=== PATIENT | male | born 2000 | race Two or more races ===

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

== ENCOUNTER 2022-07-26 17:13 | Inpatient (IN) | payer OTHER ==
[~2022-07-26] VITALS: Ht 172.7 cm; Wt 150.4 kg
[2022-07-26 17:53] LABS: Eosinophils # (auto) 0.1 10 ^3/uL (0-0.8); Eosinophils % (auto) 1.1 % (0.0-7.0); Lymphocytes # (auto) 2.8 10 ^3/uL (0.4-5.4); Nucleated Red Blood Cells % 0.1 %
[2022-07-26 17:54] LABS: Basophils # (auto) 0.1 10 ^3/uL (0-0.2); Basophils % (auto) 0.6 % (0.0-2.0); Hematocrit 40.3 % (41.0-53.0); Hemoglobin 13.4 g/dL (13.5-17.5); Lymphocytes % (auto) 25.2 % (10.0-50.0); Mean Corpuscular Hemoglobin 27.2 pg (28.0-32.0); Mean Corpuscular Hgb Conc. 33.3 g/dL (32.0-36.0); Mean Corpuscular Volume 81.7 fL (80.0-100.0); Monocytes % (auto) 8.5 % (0.0-12.0); Neutrophils # (auto) 7.3 10 ^3/uL (1.6-8.6); Neutrophils % (auto) 64.6 % (37.0-80.0); Red Blood Cells 4.92 10^6/uL (4.5-5.90); Red Cell Distribution Width 14.1 % (11.8-14.3); White Blood Cell 11.3 10^3/uL (4.4-10.8)
[2022-07-26 18:13] LABS: Albumin 3.5 g/dL (3.4-5.0); BUN/Creatinine Ratio 14.7; Potassium 3.8 mmol/L (3.5-5.1)
[2022-07-26 18:16] LABS: Bilirubin, Total 0.2 mg/dL (0.2-1.0); Total Protein 8.3 g/dL (6.4-8.2)
[2022-07-26] MEDS ORDERED: DICYCLOMINE HCL (10MG/ML) 2 ML AMPULE IM ONE (20:15)
[2022-07-26] MEDS ORDERED: PIPERACILLIN-TAZOB 3.375GM 100 ML IV ONE (22:00)
[2022-07-26] MEDS ORDERED: DOCUSATE SOD 100 MG CAP PO PRN (22:15)
[2022-07-26] MEDS ORDERED: ONDANSETRON HCL 4 MG/2 ML VIAL IV PRN (22:15)
[2022-07-26] MEDS ORDERED: ACETAMINOPHEN 325 MG TAB PO PRN (22:15)
[2022-07-26] MEDS ORDERED: HYDROcodone-ACET 5/325MG TAB PO PRN (22:15)
[2022-07-26 23:30] LABS: INR 0.94 (0.9-1.15); Partial Thromboplastin Time 28.7 sec (24.6-33.4)
[2022-07-27] MEDS ORDERED: MORPHINE SULFATE INJ 2 MG/ml SYRG IV PRN
[2022-07-27] MEDS ORDERED: NITROGLYCERIN 0.4 MG SL TAB SL PRN
[2022-07-27] MEDS: D5W/SOD CHL 0.45% 1,000 ML IV SCH ×2 (00:29→14:00)
[2022-07-27 07:28] LABS: Basophils # (auto) 0.1 10 ^3/uL (0-0.2); Basophils % (auto) 1.4 % (0.0-2.0); Eosinophils # (auto) 0.1 10 ^3/uL (0-0.8); Eosinophils % (auto) 1.7 % (0.0-7.0); Hematocrit 37.9 % (41.0-53.0); Lymphocytes # (auto) 2.3 10 ^3/uL (0.4-5.4); Lymphocytes % (auto) 33.6 % (10.0-50.0); Mean Corpuscular Hemoglobin 27.3 pg (28.0-32.0); Mean Corpuscular Hgb Conc. 34.5 g/dL (32.0-36.0); Mean Corpuscular Volume 79.3 fL (80.0-100.0); Monocytes # (auto) 0.6 10 ^3/uL (0-1.3); Monocytes % (auto) 8.9 % (0.0-12.0); Neutrophils # (auto) 3.7 10 ^3/uL (1.6-8.6); Neutrophils % (auto) 54.4 % (37.0-80.0); Nucleated Red Blood Cells % 0.2 %; Red Blood Cells 4.77 10^6/uL (4.5-5.90); Red Cell Distribution Width 14.6 % (11.8-14.3); White Blood Cell 6.7 10^3/uL (4.4-10.8)
[2022-07-27 07:48] LABS: Calcium 8.6 mg/dL (8.5-10.1); Potassium 3.9 mmol/L (3.5-5.1)
[2022-07-27 07:54] LABS: BUN/Creatinine Ratio 18.3; Bilirubin, Total 0.4 mg/dL (0.2-1.0); Total Protein 7.2 g/dL (6.4-8.2)
[2022-07-27] MEDS ORDERED: ceFAZolin 1GM/50ML 100 ML IV ONE (08:36)
[2022-07-27 08:49] LABS: Urine Bacteria NONE SEEN /hpf (None Seen); Urine Blood Negative /uL (Negative); Urine Mucus MODERATE (None Seen); Urine WBC 10 /hpf (0 - 3)
[2022-07-27] MEDS ORDERED: LIDOCAINE W/ EPINEPHRINE 1% 20ML VIAL ONE (08:55)
[2022-07-27] MEDS ORDERED: BUPIVACAINE 0.25% INJ 50ML VIAL ONE (08:56)
[2022-07-27] MEDS ORDERED: BUPIVACAINE HCL 0.25% P/F 10 ML VIAL ONE (08:56)
[2022-07-27] MEDS ORDERED: DexAMETHasone SOD PHOS 10MG/1ML VIAL INJ ONE (09:08)
[2022-07-27] MEDS ORDERED: fentaNYL CITRATE 100 MCG/2 ML VL ONE (09:08)
[2022-07-27] MEDS ORDERED: KETOROLAC TROMETH 30 MG/ML 1ML VIAL ONE (09:08)
[2022-07-27] MEDS ORDERED: MIDAZOLAM HCL 2MG/2ML 2ml VIAL (1mg/ml) ONE (09:08)
[2022-07-27] MEDS ORDERED: HYDROmorphone HCL 2 MG/ML VL/or syr ONE (09:08)
[2022-07-27] MEDS ORDERED: PROPOFOL 10 MG/ML 20 ML IV ONE (09:09)
[2022-07-27] MEDS ORDERED: GLYCOPYRROLATE 0.2 MG/ML 1ML VIAL ONE (09:09)
[2022-07-27] MEDS ORDERED: LIDOCAINE 2% (LOCAL ANESTH.) PF 5ml SDV ONE (09:09)
[2022-07-27] MEDS ORDERED: ONDANSETRON HCL 4 MG/2 ML VIAL ONE (09:09)
[2022-07-27 09:18] LABS: Alcohol, Urine < 3.0 mg/dL (0-10); Amphetamine Screen, Urine NEGATIVE (NEGATIVE); Barbiturate Scree,Urine NEGATIVE (NEGATIVE); Benzodiazephine Screen, Urine NEGATIVE (NEGATIVE); Cannabinoid Screen, Urine NEGATIVE (NEGATIVE); Cocaine Screen, Urine NEGATIVE (NEGATIVE); Opiate Scree,Urine NEGATIVE (NEGATIVE); Phencyclidine Screen, Urine NEGATIVE (NEGATIVE)
[2022-07-27] MEDS ORDERED: ceFAZolin 1GM VL ONE (09:41)
[2022-07-27] MEDS ORDERED: ePHEDrine SULFATE 50 MG/ML AMP ONE (09:53)
[2022-07-27] MEDS ORDERED: FAMOTIDINE (10MG/ML) 2ML VL IV SCH (10:00)
[2022-07-27] MEDS ORDERED: SUGAMMADEX 200mg/2ml Vial (100MG/ML) IV ONE (10:08)
[2022-07-27] MEDS ORDERED: POVIDONE IODINE 10 % TOPICAL OINT 30GM TOP ONE (10:17)
[2022-07-27] MEDS ORDERED: HYDROmorphone HCL 2 MG/ML VL/or syr IV PRN (10:45)
[2022-07-27] MEDS ORDERED: ONDANSETRON HCL 4 MG/2 ML VIAL IV PRN (10:45)
[2022-07-27] MEDS ORDERED: ALBUTEROL SULF 2.5 MG/0.5ML(0.5%) NEB SOLN NEB PRN (10:45)
[2022-07-27 16:44] VITALS: BP 109/61
[2022-07-27 20:00] VITALS: BP_SYST 103; BP_SYST 126; BP_DIAS 52; BP_DIAS 62
[2022-07-27] MEDS: MORPHINE SULFATE INJ 2 MG/ml SYRG IV PRN (22:56)
[2022-07-28] MEDS: D5W/SOD CHL 0.45% 1,000 ML IV SCH ×3 (00:55→08:43)
[2022-07-28 04:57] VITALS: BP 101/95
[2022-07-28 08:00] VITALS: BP 116/64
[2022-07-28] MEDS: MORPHINE SULFATE INJ 2 MG/ml SYRG IV PRN (08:42)
[2022-07-28 09:00] VITALS: BP 116/64
[2022-07-28] MEDS ORDERED: PANTOPRAZOLE 40 MG/10 ML VIAL INJ IV SCH (10:00)
[2022-07-28] MEDS ORDERED: HYDR-4798 PO ×3 (10:34→15:04)
[2022-07-28 12:11] VITALS: BP 116/64
== END 2022-07-28 13:12 | disposition home or self-care (01) | DRG 227 ==
LOC: ER 17:13 → OVERFLOW 07-27 → WEST WING 07-27 00:02
PROVIDERS: ADMIT Nurse Practitioner Family; ATTEND Internal Medicine Geriatric Medicine
PROC: 0WQF0ZZ Repair Abdominal Wall, Open Approach (ICD-10-PCS; principal; 2022-07-27 09:29)
DX: K43.6 Other and unspecified ventral hernia with obstruction, without gangrene (principal); D72.829 Elevated white blood cell count, unspecified; E66.01 Morbid (severe) obesity due to excess calories; Z20.822 Contact with and (suspected) exposure to COVID-19; Z68.42 Body mass index [BMI] 45.0-49.9, adult
CPT/HCPCS: 36415; 74176; 80053; 80307; 81001; 85025; 85610; 85730; 86850; 86900; 86901; 87426; 96365; 96366; 96372; C9113; G0378; J0690; J1100; J1885; J2001; J2250; J2405; J2543; J2704; J3490

== ENCOUNTER 2023-01-12 20:00 | Emergency (ER) | payer OTHER ==
[~2023-01-12] VITALS: Ht 175.3 cm; Wt 154.0 kg
[~2023-01-12 20:00] MED LIST: HYDR-4798 PO
[2023-01-12 21:53] LABS: Urine Bacteria NONE SEEN /hpf (None Seen); Urine Blood Negative /uL (Negative); Urine Clarity HAZY (Clear); Urine Color Yellow (Yellow); Urine Hyaline Cast FEW /lpf (0 - 2); Urine Mucus FEW (None Seen); Urine Protein, UAD TRACE (Negative); Urine Specific Gravity 1.035 (1.001-1.035); Urine Urobilinogen Normal (Negative); Urine WBC 3 /hpf (0 - 3)
[2023-01-12 22:28] LABS: Basophils # (auto) 0.1 10 ^3/uL (0-0.2); Basophils % (auto) 0.7 % (0.0-2.0); Eosinophils # (auto) 0.1 10 ^3/uL (0-0.8); Mean Corpuscular Hemoglobin 26.8 pg (28.0-32.0); Red Cell Distribution Width 14.6 % (11.8-14.3)
[2023-01-12 22:29] LABS: Eosinophils % (auto) 1.3 % (0.0-7.0); Hemoglobin 13.5 g/dL (13.5-17.5); Lymphocytes # (auto) 3.2 10 ^3/uL (0.4-5.4); Lymphocytes % (auto) 29.5 % (10.0-50.0); Mean Corpuscular Hgb Conc. 32.9 g/dL (32.0-36.0); Mean Corpuscular Volume 81.5 fL (80.0-100.0); Monocytes # (auto) 0.9 10 ^3/uL (0-1.3); Monocytes % (auto) 8.5 % (0.0-12.0); Neutrophils # (auto) 6.6 10 ^3/uL (1.6-8.6); Red Blood Cells 5.02 10^6/uL (4.5-5.90); White Blood Cell 10.9 10^3/uL (4.4-10.8)
[2023-01-12 22:47] LABS: Alanine Aminotransferase 51 U/L (7-40); Albumin 4.4 g/dL (3.2-4.8); Alkaline Phosphatase 68 U/L (46-116); Anion Gap 6.5 (5-15); Aspartate Aminotransferase 24 U/L (13-40); BUN/Creatinine Ratio 11.8 (10.0-20.0); Blood Urea Nitrogen 8 mg/dL (9-23); Calcium 9.3 mg/dL (8.7-10.4); Carbon Dioxide 24.5 mmol/L (20-30); Chloride 107 mmol/L (98-107); Glucose 98 mg/dL (74-106); Lipase 36 U/L (12-53); Potassium 3.7 mmol/L (3.5-5.1); Sodium 138 mmol/L (136-145)
[2023-01-12 22:48] LABS: Bilirubin, Total 0.4 mg/dL (0.2-1.0)
[2023-01-12] MEDS ORDERED: ONDANSETRON ODT 4 MG TAB PO ONE (23:30)
[2023-01-12] MEDS ORDERED: KETOROLAC TROMETH 60MG/2ML VIAL IM ONE (23:30)
[2023-01-12] MEDS ORDERED: ZOFR4T PO (23:33)
[2023-01-12] MEDS ORDERED: HYDR-4902 PO (23:33)
[2023-01-12] MEDS ORDERED: DOCU-94 PO (23:33)
[2023-01-12] MEDS: HYDROcodone-ACET 5/325MG TAB PO ONE ×2 (23:37→23:43)
[2023-01-12 23:51] VITALS: BP 141/90; PULSE 97; RESP 18; TEMP 98.7; O2SAT 97
== END 2023-01-12 23:53 | disposition home or self-care (01) ==
LOC: ER 20:00
DX: S39.011A Strain of muscle, fascia and tendon of abdomen, initial encounter (principal); K76.0 Fatty (change of) liver, not elsewhere classified; I10 Essential (primary) hypertension; X58.XXXA Exposure to other specified factors, initial encounter; Y93.89 Activity, other specified; Y92.89 Other specified places as the place of occurrence of the external cause; Y99.8 Other external cause status
CPT/HCPCS: 36415; 74176; 80053; 81001; 83690; 85025; 96372; 99285; J1885; Q0162

== ENCOUNTER 2023-05-18 10:28 | Emergency (ER) | payer OTHER ==
[~2023-05-18] VITALS: Ht 172.7 cm; Wt 163.8 kg
[~2023-05-18 10:28] MED LIST changes: +DOCU-94 PO; +HYDR-4902 PO; +ZOFR4T PO
[2023-05-18 10:37] VITALS: BP 154/86; PULSE 20; RESP 20; O2SAT 95
[2023-05-18 11:25] LABS: Basophils # (auto) 0.1 10 ^3/uL (0-0.2); Eosinophils # (auto) 0.2 10 ^3/uL (0-0.8); Lymphocytes # (auto) 2.9 10 ^3/uL (0.4-5.4); Mean Corpuscular Hgb Conc. 32.8 g/dL (32.0-36.0); Nucleated Red Blood Cells % 0.1 %
[2023-05-18 11:26] LABS: Basophils % (auto) 0.7 % (0.0-2.0); Eosinophils % (auto) 1.6 % (0.0-7.0); Hematocrit 41.2 % (41.0-53.0); Hemoglobin 13.5 g/dL (13.5-17.5); Lymphocytes % (auto) 29.1 % (10.0-50.0); Mean Corpuscular Volume 82.4 fL (80.0-100.0); Monocytes # (auto) 0.6 10 ^3/uL (0-1.3); Monocytes % (auto) 6.4 % (0.0-12.0); Neutrophils # (auto) 6.2 10 ^3/uL (1.6-8.6); Neutrophils % (auto) 62.2 % (37.0-80.0); Red Cell Distribution Width 14.8 % (11.8-14.3)
[2023-05-18 11:44] LABS: Alanine Aminotransferase 65 U/L (7-40); Albumin 4.5 g/dL (3.2-4.8); Alkaline Phosphatase 73 U/L (46-116); Anion Gap 8 (5-15); Aspartate Aminotransferase 34 U/L (13-40); BUN/Creatinine Ratio 13.8 (10.0-20.0); Blood Urea Nitrogen 9 mg/dL (9-23); Calcium 9.4 mg/dL (8.7-10.4); Carbon Dioxide 24 mmol/L (20-30); Chloride 106 mmol/L (98-107); Glucose 89 mg/dL (74-106); Lipase 31 U/L (12-53); Potassium 3.9 mmol/L (3.5-5.1); Sodium 138 mmol/L (136-145)
[2023-05-18 11:45] LABS: Bilirubin, Total 0.2 mg/dL (0.2-1.0); Total Protein 8.2 g/dL (5.7-8.2)
[2023-05-18 12:45] LABS: Urine Bacteria FEW /hpf (None Seen); Urine Blood Negative /uL (Negative); Urine Clarity Clear (Clear); Urine Color Yellow (Yellow); Urine Mucus FEW (None Seen); Urine Protein, UAD Negative (Negative); Urine Specific Gravity 1.028 (1.001-1.035); Urine Urobilinogen Normal (Negative); Urine WBC 2 /hpf (0 - 3); Urine pH 5.5 (5.0-8.0)
[2023-05-18] MEDS ORDERED: IBUP-1456 PO (14:31)
== END 2023-05-18 14:57 | disposition home or self-care (01) ==
LOC: ER 10:28
DX: K43.9 Ventral hernia without obstruction or gangrene (principal); Z98.890 Other specified postprocedural states; Z79.899 Other long term (current) drug therapy
CPT/HCPCS: 36415; 74176; 80053; 81001; 83690; 85025